=== PATIENT | male | born 1975 | race Two or more races ===

== ENCOUNTER 2017-03-08 11:46 | Outpatient (CLI) | payer OTHER ==
[2017-03-08 12:51] LABS: CREATININE 0.8 MG/DL (0.55-1.30); GLOMERULAR FILTRATION RATE > 60 mL/min (>60)
--- NOTE | 2017-03-09 09:14 | Diagnostic Imaging Report ---
Clinical Indication: Lower abdominal pain Technique: Patient ingested oral contrast. IV administration nonionic contrast. Venous phase spiral acquisition obtained through the abdomen and pelvis. Multiplanar reconstructions were generated. Total dose length product 541 mGycm. CTDIvol(s) 10 mGy. Dose reduction achieved using automated exposure control Comparison: none Findings: The appendix is normal. Moderate amount of retained fecal material is present within the colon. No evidence of diverticulosis or diverticulitis. No hernia demonstrated. No small bowel distention or small bowel wall thickening. The liver is unremarkable. The gallbladder contains gallstones. No biliary ductal dilatation. The pancreas, spleen, adrenals, right kidney are unremarkable. The bladder is distended. The left kidney demonstrates a few subcentimeter low-attenuation lesions which are too small to characterize. The included lung bases are clear. 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 No acute abnormality or evidence of hernia Incidental finding subcentimeter low-attenuation left renal lesions, too small to characterize but most likely represent cortical cysts. No further follow-up necessary Old healed pubic fracture deformity incidentally noted The CT scanner at [facility] is accredited by the [employer] and the scans are performed using protocols designed to limit radiation exposure to as low as reasonably achievable to attain images of sufficient resolution adequate for diagnostic evaluation.
== END 2017-03-08 13:46 | disposition home or self-care (01) ==
LOC: CAT 11:46
DX: K80.20 Calculus of gallbladder without cholecystitis without obstruction (principal)
CPT/HCPCS: 36415; 74177; 82565; 84520; 93926; 93971; Q9967; 74178